=== PATIENT | male | born 1960 | race African-American/Black ===

== ENCOUNTER 2019-05-13 15:44 | Inpatient (IN) | payer OTHER ==
[~2019-05-13] VITALS: Ht 172.7 cm; Wt 99.4 kg
--- NOTE | 2019-05-13 15:55 | NUR ---
PT QAMAR LJ FROM RETIREMENT. PT REPORTS HAVING A PRODUCTIVE COUGH WITH WHITE SPUTUM FOR A WEEK. TODAY HE BECAME SOB WITH TIGHTNESS IN CHEST. HE RECIEVED 3 ALBUTEROL AND 2 DUO NEB TREATMENTS EN ROUTE TO [place]. WAS ALSO GIVEN 324 ASPRIN AND 1 NITRO. 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 O2 SAT IS 98 ON2 LITERS. PT ACCOMPANIED BY 2 JAIL GUARDS.
[2019-05-13] MEDS ORDERED: ALBU90AE INH (16:27)
[2019-05-13] MEDS ORDERED: ATOR-2 PO (16:27)
[2019-05-13] MEDS ORDERED: BUDE10.2 INH (16:27)
[2019-05-13] MEDS ORDERED: AMLO10TA8 PO (16:27)
[2019-05-13] MEDS ORDERED: ASPI-515 PO (16:27)
[2019-05-13] MEDS ORDERED: ALBUTEROL 0.5%, 20ML ONE (16:42)
--- NOTE | 2019-05-13 16:54 | NUR ---
PT RESTING IN [facility]. WAS NOT GIVEN ASPIRIN THAT WAS ORDERED [facility] GAVE 324 OF ASPIRIN EN ROUTE.
[2019-05-13] MEDS ORDERED: SODIUM CHLORIDE FLUSH 10ML SYR IVF ONE (17:00)
[2019-05-13] MEDS ORDERED: methylPREDNISolone SOD SUCC 125 MG/2 ML IVPush ONE (17:00)
[2019-05-13] MEDS ORDERED: ALBUTEROL 0.5%, 20ML NPPBCONT ONE (17:00)
[2019-05-13] MEDS ORDERED: ASPIRIN 81 MG TABLET CHEW PO ONE (17:00)
[2019-05-13 17:11] LABS: ALBUMIN 3.8 g/dL (3.4-5.0); ANION GAP 8 mmol/L (5-15); CALCIUM 8.9 mg/dL (8.5-10.1); CHLORIDE 108 mmol/L (98-107)
[2019-05-13 17:15] LABS: TROPONIN I < 0.015 ng/mL (0.000-0.045)
[2019-05-13 17:23] LABS: BASOPHILS # (AUTO) 0.04 x10^3/uL (0-0.1); BASOPHILS % (AUTO) 1 % (0-1); EOSINOPHILS # (AUTO) 0.91 x10^3/uL (0-0.4); EOSINOPHILS % (AUTO) 13 % (1-7); LYMPHOCYTES # (AUTO) 1.16 x10^3/uL (1-3.4); LYMPHOCYTES % (AUTO) 17 % (22-44); MEAN CORPUSCULAR HEMOGLOBIN 28.5 pg (27.5-34.5); MEAN CORPUSCULAR HGB CONC 33.2 g/dL (33.2-36.2); MEAN CORPUSCULAR VOLUME 85.9 fL (81-97); MEAN PLATELET VOLUME 8.3 fL (7.4-10.4); MONOCYTES # (AUTO) 0.43 x10^3/uL (0.2-0.8); MONOCYTES % (AUTO) 6 % (2-9); NEUTROPHILS # (AUTO) 4.48 x10^3/uL (1.8-6.8); NEUTROPHILS % (AUTO) 64 % (42-75); PLATELET COUNT 306 x10^3/uL (130-400); RED BLOOD COUNT 4.54 x10^6/uL (4.38-5.82); RED CELL DISTRIBUTION WIDTH 15.3 % (9.4-14.8)
[2019-05-13 17:24] LABS: MD NO
--- NOTE | 2019-05-13 17:45 | NUR ---
PT. IS RESTING WITH THE MONITOR IN PLACE. VSS. PT. REPORTS FEELING BETTER AT THIS TIME. OFFICERS REMAIN AT THE BEDSIDE.
[2019-05-13 20:40] VITALS: BP 119/72
[2019-05-13] MEDS ORDERED: BUDESONIDE 0.5 MG/2 ML INHA NPPB SCH (21:00)
[2019-05-13] MEDS ORDERED: ALBUTEROL/IPRATROPIUM 2.5MG/0.5MG, 3 ML NPPB PRN (21:00)
[2019-05-13] MEDS ORDERED: TEMAZEPAM 15 MG CAPSULE PO PRN (22:00)
[2019-05-13] MEDS ORDERED: DOCUSATE 100 MG CAPSULE PO PRN (22:00)
[2019-05-13] MEDS ORDERED: POTASSIUM CHLORIDE 20 MEQ TAB.ER.PRT PO ONE (22:00)
[2019-05-13] MEDS: BUDESONIDE 0.5 MG/2 ML INHA NPPB SCH (22:00)
[2019-05-13] MEDS ORDERED: KETOROLAC 30 MG/1 ML IV PRN (22:00)
[2019-05-13] MEDS ORDERED: ENALAPRILAT 1.25 MG/ML, 2ML IVPush PRN (22:00)
[2019-05-13] MEDS ORDERED: ACETAMINOPHEN 325 MG TABLET PO PRN (22:00)
[2019-05-13] MEDS ORDERED: LIDODERM 5% PATCH TD PRN (22:00)
[2019-05-13] MEDS ORDERED: ONDANSETRON ODT 4 MG PO PRN (22:00)
[2019-05-13] MEDS: ATORVASTATIN 40 MG TABLET PO SCH (22:15)
[2019-05-13] MEDS: ENOXAPARIN 40 MG/0.4 ML SQ SCH (22:15)
[2019-05-13] MEDS: GUAIFENESIN/DM 200-20MG, 10ML UDC PO PRN (22:15)
[2019-05-13] MEDS: ALBUTEROL/IPRATROPIUM 2.5MG/0.5MG, 3 ML NPPB SCH (22:30)
[2019-05-13 23:17] LABS: TROPONIN I < 0.015 ng/mL (0.000-0.045)
[2019-05-14 01:32] VITALS: BP 131/87
[2019-05-14] MEDS: ALBUTEROL/IPRATROPIUM 2.5MG/0.5MG, 3 ML NPPB SCH ×5 (02:34→19:40)
[2019-05-14 05:27] LABS: BASOPHILS % (AUTO) 0 % (0-1); EOSINOPHILS % (AUTO) 0 % (1-7); LYMPHOCYTES # (AUTO) 0.39 x10^3/uL (1-3.4); LYMPHOCYTES % (AUTO) 5 % (22-44); MD NO; MEAN CORPUSCULAR HEMOGLOBIN 28.7 pg (27.5-34.5); MEAN CORPUSCULAR HGB CONC 33.1 g/dL (33.2-36.2); MEAN CORPUSCULAR VOLUME 86.8 fL (81-97); MEAN PLATELET VOLUME 8.5 fL (7.4-10.4); MONOCYTES # (AUTO) 0.03 x10^3/uL (0.2-0.8); MONOCYTES % (AUTO) 0 % (2-9); NEUTROPHILS # (AUTO) 6.67 x10^3/uL (1.8-6.8); NEUTROPHILS % (AUTO) 94 % (42-75); PLATELET COUNT 296 x10^3/uL (130-400); RED BLOOD COUNT 4.29 x10^6/uL (4.38-5.82); RED CELL DISTRIBUTION WIDTH 15.2 % (9.4-14.8)
[2019-05-14 05:47] LABS: CHLORIDE 107 mmol/L (98-107)
[2019-05-14 05:56] LABS: ANION GAP 8 mmol/L (5-15); CALCIUM 9.5 mg/dL (8.5-10.1); CREATININE 1.14 mg/dL (0.7-1.3); TROPONIN I < 0.015 ng/mL (0.000-0.045)
[2019-05-14 06:50] VITALS: BP 118/79
[2019-05-14] MEDS: BUDESONIDE 0.5 MG/2 ML INHA NPPB SCH ×2 (07:25→19:40)
[2019-05-14] MEDS: AMLODIPINE 10 MG TAB PO SCH (08:05)
[2019-05-14] MEDS: ASPIRIN 81 MG TABLET EC PO SCH (08:05)
[2019-05-14] MEDS ORDERED: LIDODERM REMOVE PATCH NOTE XX PRN (10:00)
[2019-05-14] MEDS: INSULIN LISPRO 100 UNITS/ML, PEN SQ-INSULIN SCH ×3 (12:00→20:43)
[2019-05-14] MEDS: GUAIFENESIN 200 MG TABLET PO SCH ×3 (12:18→20:37)
[2019-05-14 14:00] VITALS: BP 120/78
[2019-05-14] MEDS: ATORVASTATIN 40 MG TABLET PO SCH (20:37)
[2019-05-14] MEDS: GUAIFENESIN/DM 200-20MG, 10ML UDC PO PRN (20:37)
[2019-05-14] MEDS: methylPREDNISolone SOD SUCC 40 MG/ML IV SCH (20:38)
[2019-05-14 21:04] VITALS: BP 128/78
[2019-05-14] MEDS: ENOXAPARIN 40 MG/0.4 ML SQ SCH (22:00)
[2019-05-15 00:16] VITALS: BP 133/78
[2019-05-15] MEDS: GUAIFENESIN 200 MG TABLET PO SCH ×4 (05:56→20:28)
[2019-05-15] MEDS: GUAIFENESIN/DM 200-20MG, 10ML UDC PO PRN (05:56)
[2019-05-15 05:57] LABS: MEAN CORPUSCULAR HEMOGLOBIN 28.5 pg (27.5-34.5); MEAN CORPUSCULAR HGB CONC 32.5 g/dL (33.2-36.2); MEAN CORPUSCULAR VOLUME 87.8 fL (81-97); MEAN PLATELET VOLUME 8.4 fL (7.4-10.4); PLATELET COUNT 279 x10^3/uL (130-400); RED BLOOD COUNT 4.26 x10^6/uL (4.38-5.82); RED CELL DISTRIBUTION WIDTH 15.6 % (9.4-14.8)
[2019-05-15 05:59] LABS: ANION GAP 5 mmol/L (5-15); CALCIUM 8.9 mg/dL (8.5-10.1); CHLORIDE 107 mmol/L (98-107); CREATININE 0.86 mg/dL (0.7-1.3)
[2019-05-15 06:33] LABS: BASOPHILS % (AUTO) 0 % (0-1); EOSINOPHILS % (AUTO) 0 % (1-7); LYMPHOCYTES # (AUTO) 0.52 x10^3/uL (1-3.4); LYMPHOCYTES % (AUTO) 5 % (22-44); MD SCAN; MONOCYTES # (AUTO) 0.21 x10^3/uL (0.2-0.8); MONOCYTES % (AUTO) 2 % (2-9); NEUTROPHILS # (AUTO) 10.57 x10^3/uL (1.8-6.8); NEUTROPHILS % (AUTO) 94 % (42-75)
[2019-05-15] MEDS ORDERED: FLU VACC QS2019-20 36MOS UP/PF 0.5 ML IM-VACC ONE (07:30)
[2019-05-15] MEDS: BUDESONIDE 0.5 MG/2 ML INHA NPPB SCH ×2 (07:47→19:00)
[2019-05-15] MEDS: ALBUTEROL/IPRATROPIUM 2.5MG/0.5MG, 3 ML NPPB SCH ×4 (07:47→19:00)
[2019-05-15] MEDS: INSULIN LISPRO 100 UNITS/ML, PEN SQ-INSULIN SCH ×4 (07:55→20:28)
[2019-05-15 09:59] VITALS: BP 134/75
[2019-05-15] MEDS: methylPREDNISolone SOD SUCC 40 MG/ML IV SCH ×2 (11:34→20:28)
[2019-05-15] MEDS: ASPIRIN 81 MG TABLET EC PO SCH (11:34)
[2019-05-15] MEDS: AMLODIPINE 10 MG TAB PO SCH (11:34)
[2019-05-15 15:31] VITALS: BP 120/79
[2019-05-15 19:17] VITALS: BP 114/73
[2019-05-15] MEDS: ENOXAPARIN 40 MG/0.4 ML SQ SCH (20:27)
[2019-05-15] MEDS: ATORVASTATIN 40 MG TABLET PO SCH (20:28)
[2019-05-16] MEDS: ALBUTEROL/IPRATROPIUM 2.5MG/0.5MG, 3 ML NPPB SCH ×4 (01:29→20:00)
[2019-05-16 01:33] VITALS: BP 122/71
[2019-05-16] MEDS: GUAIFENESIN 200 MG TABLET PO SCH ×4 (05:39→20:19)
[2019-05-16] MEDS: BUDESONIDE 0.5 MG/2 ML INHA NPPB SCH ×2 (07:47→20:05)
[2019-05-16 07:55] VITALS: BP 112/75
[2019-05-16] MEDS: methylPREDNISolone SOD SUCC 40 MG/ML IV SCH (08:21)
[2019-05-16] MEDS: INSULIN LISPRO 100 UNITS/ML, PEN SQ-INSULIN SCH ×4 (08:22→20:18)
[2019-05-16] MEDS: ASPIRIN 81 MG TABLET EC PO SCH (08:22)
[2019-05-16] MEDS: AMLODIPINE 10 MG TAB PO SCH (08:22)
[2019-05-16] MEDS: INSULIN GLARGINE 100 UNITS/ML, PEN SQ-INSULIN SCH ×2 (09:00→20:18)
[2019-05-16 13:05] VITALS: BP 115/75
[2019-05-16] MEDS: ATORVASTATIN 40 MG TABLET PO SCH (20:18)
[2019-05-16 21:03] VITALS: BP 121/76
[2019-05-16] MEDS: ENOXAPARIN 40 MG/0.4 ML SQ SCH (22:14)
[2019-05-17 01:56] VITALS: BP 128/80
[2019-05-17] MEDS: GUAIFENESIN 200 MG TABLET PO SCH (05:46)
[2019-05-17] MEDS: ASPIRIN 81 MG TABLET EC PO SCH (07:31)
[2019-05-17] MEDS: AMLODIPINE 10 MG TAB PO SCH (07:31)
[2019-05-17] MEDS: INSULIN GLARGINE 100 UNITS/ML, PEN SQ-INSULIN SCH (07:31)
[2019-05-17] MEDS: INSULIN LISPRO 100 UNITS/ML, PEN SQ-INSULIN SCH (07:31)
[2019-05-17] MEDS: ALBUTEROL/IPRATROPIUM 2.5MG/0.5MG, 3 ML NPPB SCH (07:38)
[2019-05-17] MEDS: BUDESONIDE 0.5 MG/2 ML INHA NPPB SCH (07:38)
[2019-05-17] MEDS ORDERED: BUDE10.2 INH (08:01)
[2019-05-17] MEDS ORDERED: METF850T10 PO (08:01)
[2019-05-17] MEDS ORDERED: IPRA3AMP30 NPPB (08:01)
[2019-05-17] MEDS ORDERED: PRED10TA PO (08:01)
[2019-05-17 08:05] VITALS: BP 126/82
== END 2019-05-17 10:31 | disposition home or self-care (01) | DRG 189 ==
LOC: ED 17:15 → EDIP 17:34 → 3N 19:05
PROVIDERS: ADMIT Internal Medicine; ATTEND Internal Medicine
DX: J96.01 Acute respiratory failure with hypoxia (principal); J44.1 Chronic obstructive pulmonary disease with (acute) exacerbation; D64.9 Anemia, unspecified; E11.9 Type 2 diabetes mellitus without complications; E78.00 Pure hypercholesterolemia, unspecified; E78.5 Hyperlipidemia, unspecified; E87.6 Hypokalemia; I10 Essential (primary) hypertension; T38.0X5A Adverse effect of glucocorticoids and synthetic analogues, initial encounter; Z82.5 Family history of asthma and other chronic lower respiratory diseases; Z87.891 Personal history of nicotine dependence; Y92.89 Other specified places as the place of occurrence of the external cause; Z88.0 Allergy status to penicillin; Z23 Encounter for immunization; D72.829 Elevated white blood cell count, unspecified
CPT/HCPCS: 36415; 96374; 99285; J7611; J7620; J7626; 71045; 80048; 82040; 82962; 83036; 83735; 83880; 84484; 85025; 87040; 90686; 93005; 94640; 94644; G0378; J1650; J1815; J2920; J2930; J7512